=== PATIENT | male | born 1965 | race Caucasian/White ===

== ENCOUNTER 2017-04-14 08:34 | Emergency (ER) | payer BC ==
--- NOTE | 2017-04-14 08:59 | EDM.PDOC ---
ED HPI GENERAL MEDICAL PROBLEM - General Chief Complaint: Syncope Stated Complaint: HEADACHE,WEIGHT LOSS Time Seen by Provider: 04/14/17 08:58 Source of Information: Reports: Patient History Limitations: Reports: No Limitations - History of Present Illness INITIAL COMMENTS - FREE TEXT/NARRATIVE: 51-year-old male attends the ED with signs of persistent vertigo for the last several months. He has a history of chronic sinus infections which is better at present after using Nasonex nightly at bedtime and Angelique at bedtime. However he continues to have vertigo with certain movements of his hand. She's lost 20 pounds of weight in the last month to try and improve hiatal hernia symptoms. He is not orthostatic today. Some of the signs and symptoms suggest possible physiological hypoglycemia. He states he walks like a drunk a lot of times. He denies any tinnitus. Has been on several different kinds of antibiotics for infection of the last couple months. He has taken meclizine on a when necessary basis without much improvement. Headache is more or less constant occipital aspect of the skull in the midline. Onset: Gradual (At least 2-3 months.) Duration: Constant Location: Reports: Generalized (Chronic vertigo) Quality: Reports: Other Severity: Moderate (Off balance feeling vertigo.) Improves with: Reports: Rest (Not moving.) Worsens with: Reports: Movement Context: Denies: Activity (Certain movements of his head.), Exercise, Lifting, Sick Contact, Trauma, Other Associated Symptoms: Reports: Nausea/Vomiting. Denies: Confusion, Chest Pain, Cough, cough w sputum, Diaphoresis, Fever/Chills, Headaches, Loss of Appetite, Malaise, Rash (Perhaps intermittent mild nausea but no vomiting), Seizure, Shortness of Breath, Syncope, Weakness Treatments ENROLLMENT MANAGER: Reports: Other (see below) (Meclizine when necessary) Neck Pain Score (Numeric/FACES): 5 - Related Data Allergies Allergy/AdvReac Type Severity Reaction Status Date / Time enviromental Allergy Other Uncoded 04/14/17 08:55 Home Meds: Home Meds Fexofenadine HCl [Angelique Allergy] 60 mg PO DAILY 04/14/17 [History] Mometasone Furoate [Nasonex [place]] 2 sprays INH BID 04/14/17 [History] Past Medical History HEENT History: Reports: Sinusitis (Chronic.) Social & Family History - Alcohol Use Alcohol Use History: No - Living Situation & Occupation Occupation: Employed Social History Comment: Currently employed as a truck driving of a paving crew. He originates from [place]. ED ROS GENERAL - Review of Systems Review Of Systems: See Below Constitutional: Reports: Fatigue, Decreased Appetite, Weight Loss (Liberally lost 20 pounds of weight over the last month to improve hiatal hernia symptoms.) . Denies: Fever, Chills, Malaise, Weakness, Night Sweats HEENT: Reports: Sinus Problem (Chronically.), Vertigo Respiratory: Reports: No Symptoms Cardiovascular: Reports: No Symptoms Endocrine: Reports: No Symptoms GI/Abdominal: Reports: No Symptoms : Reports: No Symptoms Musculoskeletal: Reports: No Symptoms Skin: Reports: No Symptoms Neurological: Reports: No Symptoms ED EXAM, DIZZINESS - Physical Exam Exam: See Below Exam Limited By: No Limitations General Appearance: Alert, WD/WN, No Apparent Distress, Other (Sounds nasally congested.) Eye Exam: Bilateral Eye: Normal Inspection (No nystagmus) Ears: Normal External Exam, Normal TMs Nose: Nasal Swelling (Does have enlargement of the turbinates bilaterally and I believe a small polyp on the left side.) Throat/Mouth: Normal Inspection, Normal Lips, Normal Teeth, Normal Oropharynx Head Exam: Atraumatic, Normocephalic Neck: Normal Inspection, Supple, Non-Tender, Full Range of Motion. No: Lymphadenopathy (L), Lymphadenopathy (R) Respiratory/Chest: No Respiratory Distress, Lungs Clear, Normal Breath Sounds, No Accessory Muscle Use Cardiovascular: Normal Peripheral Pulses, Regular Rate, Rhythm, No Edema, No Murmur Neurological: Normal Mood/Affect, Normal Dorsiflexion, CN II-XII Intact, Normal Plantar Flexion, Normal Gait, Normal Reflexes, No Motor/Sensory Deficits, Oriented x 3, Other (Normal finger to nose and rapid alternating movements and heel to breaux.) Back Exam: Normal Inspection, Full Range of Motion Extremities: Normal Inspection, Normal Range of Motion, Non-Tender, No Pedal Edema, Normal Capillary Refill Psychiatric: Normal Affect, Normal Mood Skin Exam: Warm, Dry, Intact, Normal Color, No Rash Course - Vital Signs Last Recorded V/S: Last Vital Signs Temp 36.9 C 04/14/17 08:43 Pulse Resp 15 04/14/17 08:43 BP Pulse Ox 99 04/14/17 08:43 Orthostatic Blood Pressure [ 122/81 Standing] Orthostatic Blood Pressure [ 121/79 Sitting] Orthostatic Blood Pressure [ 121/86 Supine] - Orders/Labs/Meds Labs: Laboratory Tests 04/14/17 04/14/17 Range/Units 09:50 09:50 WBC 4.97 (4.23-9.07) K/mm3 RBC 5.31 (4.63-6.08) M/mm3 Hgb 16.1 (13.7-17.5) gm/L Hct 47.2 (40.1-51.0) % MCV 88.9 (79.0-92.2) fl MCH 30.3 (25.7-32.2) pg MCHC 34.1 (32.2-35.5) g/dl RDW Std Deviation 40.7 (35.1-43.9) fL Plt Count 207 (163-337) K/mm3 MPV 9.6 (9.4-12.3) fl Neutrophils % (Manual) 60 (40-60) % Band Neutrophils % 1 (0-10) % Lymphocytes % (Manual) 22 (20-40) % Atypical Lymphs % 11 % Monocytes % (Manual) 3 (2-10) % Eosinophils % (Manual) 2 (0.8-7.0) % Basophils % (Manual) 1 (0.2-1.2) Platelet Estimate Adequate RBC Morph Comment Normal Sodium 143 (136-145) mEq/L Potassium 3.6 (3.5-5.1) mEq/L Chloride 107 (98-107) mEq/L Carbon Dioxide 28 (21-32) mEq/L Anion Gap 11.6 (5-15) BUN 11 (7-18) mg/dL Creatinine 1.1 (0.7-1.3) mg/dL Est Cr Clr Drug Dosing 76.00 mL/min Estimated GFR (MDRD) > 60 (>60) mL/min BUN/Creatinine Ratio 10.0 L (14-18) Glucose 92 (74-106) mg/dL Calcium 8.5 (8.5-10.1) mg/dL Magnesium 1.9 (1.8-2.4) mg/dl Total Bilirubin 0.5 (0.2-1.0) mg/dL AST 13 L (15-37) U/L ALT 19 (16-63) U/L Alkaline Phosphatase 69 (46-116) U/L C-Reactive Protein < 0.2 (<1.0) mg/dL Total Protein 6.7 (6.4-8.2) g/dl Albumin 3.6 (3.4-5.0) g/dl Globulin 3.1 gm/dL Albumin/Globulin Ratio 1.2 (1-2) TSH 3rd Generation 0.934 (0.358-3.74) uIU/mL - Radiology Interpretation Free Text/Narrative:: 51-year-old male presents to the ED for evaluation of essentially chronic vertigo. Never vomits however from the. And also with associated occipital headache which seems to be getting worse over time. Examination proved to be completely normal with no nystagmus cranial nerves 2-12 are intact. He sounds very nasally congestion I suspect has chronic sinusitis and his ethmoids and sphenoids. He reports that he's been on a course of antibiotics with limited improvement. Steroid shot seemed to help for a while. Plan routine labs including a TSH. CT of the head to be done to rule out any intracranial pathology - Re-Assessments/Exams Free Text/Narrative Re-Assessment/Exam: 04/14/17 10:20: CT of the brain reveals a large mass within the right cerebellar hemisphere that is crossing the midline. It is compressing the fourth ventricle and causing enlargement of the lateral ventricles and third ventricles i.e. intracranial hypertension. Etiology of the mass is unclear although is worrisome for tumor. I put a phone call in to neurosurgery at [facility] in [place], [place] and Dr. eBllo will call me back when she is out of the OR. 04/14/17 11:15 Dr. Bello has had a look at the CT findings and agrees that emergent consultation is in order. I therefore spoke with Dr. Laura Wong in the ER and the patient will travel there by private vehicle. Copies of his CT scan were given to him as well. Lab work revealed a normal white count of 4.97 normal differential hemoglobin 16.1 hematocrit 47.2 platelets normal 207, 000. Chemistry was completely normal normal including his TSH. Departure - Departure Time of Disposition: 11:17 Disposition: DC/Tfer to Acute Hospital 02 Condition: serious Clinical Impression: Ataxia, Mass of cerebellum, Intracranial hypertension - Discharge Information Forms: ED Department Discharge Additional Instructions: Travel to [facility] in [place]. [facility] is on [address] Nothing to eat or drink en route as surgery may be required this afternoon.. the phone number is [phone].
--- NOTE | 2017-04-14 09:52 | CT ---
Head CT Technique: Multiple axial sections through the brain were obtained. Intravenous contrast was not utilized. Findings: Large cystic lesion is seen within the posterior fossa involving the right cerebellar hemisphere causing mass effect upon the vermis and of the fourth ventricle as well as causing supratentorial hydrocephalus. This cystic area measures approximately 4.1 x 5.3 cm. Questionable soft tissue component within this cystic lesion is seen. Slight diminished density is seen around the periventricular white matter possibly secondary to the hydronephrosis causing subependymal spread of CSF fluid. No other abnormal parenchymal densities are seen. Bone window settings were reviewed which shows the visualized sinuses to appear clear. No acute calvarial abnormality is appreciated. Impression: 1. 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 Questionable soft tissue component to the cystic lesion is seen. Differential includes cystic tumor as well as cysticercosis. Brain MRI is recommended to further evaluate (without and with contrast). 2. Mild diminished density noted adjacent to the lateral ventricles likely representing transependymal spread of CSF fluid secondary to the hydrocephalus. Diagnostic code #9
--- NOTE | 2017-04-14 09:54 | CT ---
CT paranasal sinuses Technique: Multiple axial sections through the paranasal sinuses were obtained. Findings: Mild mucosal thickening is seen within the ethmoid sinuses and left side of the maxillary sinus. Minimal mucosal thickening is noted within the right maxillary sinus. Minimal areas of mucosal thickening seen within the frontal sinuses. No air-fluid levels are seen within the sinuses. Right and left globes are symmetric. Surrounding bony structures are intact. Nasal septal deviation is seen. Impression: 1. Mild areas of mucosal thickening as noted above most likely representing mild chronic sinusitis. 2. Mild nasal septal deviation is incidentally noted. Diagnostic code #2
[2017-04-14] MEDS ORDERED: LORazepam 1 MG Tab PO ONE (11:44)
[2017-04-14 12:12] VITALS: BP 116/85
== END 2017-04-14 12:05 ==
LOC: JD.ED 08:34
DX: G11.9 Hereditary ataxia, unspecified (principal); G93.9 Disorder of brain, unspecified; G93.2 Benign intracranial hypertension; Z79.899 Other long term (current) drug therapy; Z91.09 Other allergy status, other than to drugs and biological substances
CPT/HCPCS: 36415; 70450; 70486; 80053; 83735; 84443; 85025; 86140; 99285; A9270